=== PATIENT | female | born 1960 | race Caucasian/White ===

== ENCOUNTER 2024-04-22 12:57 | Emergency (ER) | payer OTHER ==
[~2024-04-22] VITALS: Ht 157.5 cm; Wt 81.6 kg
[2024-04-22 13:02] VITALS: BP 169/82; PULSE 86; RESP 18; TEMP 98; O2SAT 99
[2024-04-22] MEDS ORDERED: NAPR-1704 PO (14:31)
[2024-04-22 15:11] VITALS: BP 158/80; PULSE 82; RESP 18; TEMP 98; O2SAT 99
== END 2024-04-22 15:10 | disposition home or self-care (01) ==
LOC: MED 12:57
DX: S20.211A Contusion of right front wall of thorax, initial encounter (principal); S80.01XA Contusion of right knee, initial encounter; I10 Essential (primary) hypertension; Z88.0 Allergy status to penicillin; Z79.899 Other long term (current) drug therapy; V49.88XA Car occupant (driver) (passenger) injured in other specified transport accidents, initial encounter; Y93.89 Activity, other specified; Y92.89 Other specified places as the place of occurrence of the external cause; Y99.8 Other external cause status
CPT/HCPCS: 71045; 93005; 99283; Q0092